=== PATIENT | female | born 1940 | race African-American/Black ===

== ENCOUNTER 2022-03-16 05:57 | Inpatient (IN) ==
[2022-03-10 12:12] LABS: Basophils # 0.1 10*3/uL (0.0-0.2); Basophils % 1.2 % (0.0-0.8); Eosinophils # 0.2 10*3/uL (0.0-0.87); Hematocrit 40.5 VOL% (35.7-47.0); Hemoglobin 12.2 GM/DL (12.0-16.0); Immature Granulocytes % 0.3 %; Immature Granulocytes Absolute 0.02 #; Lymphocytes # 1.8 10*3/uL (1.4-4.0); Lymphocytes % 24.4 % (21.3-54.2); Mean Corpuscular HGB Conc 30.1 GM/DL (32-36); Mean Platelet Volume 10.8 FL (9.6-12.0); Monocytes # 0.7 10*3/uL (0.11-0.8); Monocytes % 8.8 % (1.7-12.7); Neutrophils % 63.3 % (38.7-73.9); Platelet Count 238 T/CUMM (130-400); Red Cell Distribution Width 14.5 % (9.3-17.3); White Blood Count 7.4 T/CUMM (4-12)
[2022-03-10 12:25] LABS: Albumin 3.4 G/DL (3.4-5.0); Bilirubin,Total 0.6 MG/DL (0.20-1.00); Calcium 9.2 MG/DL (8.5-10.1); Potassium 4.6 MMOL/L (3.5-5.1); Total Protein 7.6 G/DL (6.4-8.2)
[2022-03-16] MEDS ORDERED: cefTRIAXone 1,000 MG in SODIUM CHLORIDE 0.9% 100 ML IV ONE (06:00)
[2022-03-16] MEDS ORDERED: LIDOCAINE 2% 5 ML VIAL ONE (06:34)
[2022-03-16] MEDS ORDERED: ROCURONIUM 50 MG/5 ML VIAL IV ONE (06:34)
[2022-03-16] MEDS ORDERED: ONDANSETRON 4 MG/2 ML VIAL ONE (06:34)
[2022-03-16] MEDS ORDERED: ACETAMINOPHEN 500 MG TABLET PO ONE (06:34)
[2022-03-16] MEDS ORDERED: MIDAZOLAM 2 MG/2 ML VIAL ONE (06:34)
[2022-03-16] MEDS ORDERED: DIAZEPAM 5 MG TABLET PO ONE (06:34)
[2022-03-16] MEDS ORDERED: FAMOTIDINE 20 MG TABLET PO ONE (06:34)
[2022-03-16] MEDS ORDERED: fentaNYL 100 MCG/2 ML VIAL ONE (06:34)
[2022-03-16] MEDS ORDERED: propofoL 200 MG/20 ML VIAL IV ONE (06:34)
[2022-03-16] MEDS ORDERED: GABAPENTIN 400 MG CAPSULE PO ONE (06:34)
[2022-03-16] MEDS ORDERED: ROPIVACAINE 0.5% 30 ML VIAL ONE ×2 (06:38→06:40)
[2022-03-16] MEDS ORDERED: DEXAMETHASONE 4 MG/1 ML VIAL ONE (06:38)
[2022-03-16] MEDS ORDERED: LIDOCAINE 1% 5 ML VIAL ONE (06:38)
[2022-03-16] MEDS ORDERED: LACTATED RINGERS 1,000 ML IV SCH (07:00)
[2022-03-16] MEDS ORDERED: PHENYLEPHRINE 1 MG/10 ML SYRINGE IV ONE (07:41)
[2022-03-16] MEDS ORDERED: PHENYLEPHRINE 10 MG/1 ML VIAL IV ONE (08:00)
[2022-03-16] MEDS ORDERED: SODIUM CHLORIDE 0.9% 250 ML IV ONE (08:06)
[2022-03-16] MEDS ORDERED: GLYCOPYRROLATE 0.4 MG/2 ML VIAL ONE ×2 (08:07→09:25)
[2022-03-16 08:29] LABS: Mucus,Urine Occasional /LPF (Occasional); RBC,Urine 2 /HPF (0-4); Squamous Epithelial Cell,Urine Occasional /HPF (0-10)
[2022-03-16 08:30] LABS: Bilirubin,Urine Negative (Negative); Blood, Urine Trace mg/dL (Negative); Glucose,Urine (UA) >1000 mg/dL (Negative); Ketones,Urine 15 mg/dL (Negative); Nitrite,Urine Negative (Negative); Protein,Urine Negative (Negative); Urine Appearance Clear (Clear); Urine Color Yellow (Yellow); Urine Urobilinogen 0.2 eU/dL (<2.0); Urine pH 5.5 (4.5-8.0)
[2022-03-16] MEDS ORDERED: NEOSTIGMINE 10 MG/10 ML VIAL ONE (09:25)
[2022-03-16] MEDS ORDERED: LACTATED RINGERS 1,000 ML IV ONE (09:31)
[2022-03-16] MEDS ORDERED: SEVOFLURANE 1 UNIT/15 MINUTE INH ONE (09:49)
[2022-03-16] MEDS ORDERED: PROMETHAZINE 25 MG/1 ML VIAL IM PRN (09:58)
[2022-03-16] MEDS ORDERED: SIMETHICONE CHEW 125 MG TABLET PO PRN (09:58)
[2022-03-16] MEDS ORDERED: diphenhydrAMINE 50 MG/1 ML VIAL IV PRN (09:58)
[2022-03-16] MEDS ORDERED: HYDROmorphone 1 MG/1 ML SYRINGE IV PRN ×2 (09:58→10:23)
[2022-03-16] MEDS ORDERED: ONDANSETRON 4 MG/2 ML VIAL IV PRN ×2 (09:58→10:23)
[2022-03-16] MEDS ORDERED: busPIRone 5 MG TABLET PO PRN (10:01)
[2022-03-16] MEDS ORDERED: GLUCAGON 1 MG VIAL IM PRN (10:02)
[2022-03-16] MEDS ORDERED: DEXTROSE 10% 250 ML BAG IV PRN (10:02)
[2022-03-16 10:38] LABS: Basophils % 0.6 % (0.0-0.8); Eosinophils # 0.1 10*3/uL (0.0-0.87); Eosinophils % 1.2 % (0.00-10.9); Hematocrit 34.1 VOL% (35.7-47.0); Hemoglobin 10.4 GM/DL (12.0-16.0); Immature Granulocytes % 0.1 %; Immature Granulocytes Absolute 0.01 #; Lymphocytes # 1.4 10*3/uL (1.4-4.0); Lymphocytes % 20.8 % (21.3-54.2); Mean Corpuscular HGB Conc 30.5 GM/DL (32-36); Mean Corpuscular Volume 93.4 FL (87-102); Mean Platelet Volume 10.3 FL (9.6-12.0); Monocytes # 0.6 10*3/uL (0.11-0.8); Monocytes % 8.5 % (1.7-12.7); Neutrophils % 68.8 % (38.7-73.9); Platelet Count 185 T/CUMM (130-400); Red Blood Count 3.65 MC/CUMM (3.8-5.5); Red Cell Distribution Width 14.5 % (9.3-17.3); White Blood Count 6.7 T/CUMM (4-12)
[2022-03-16 10:53] LABS: Calcium 8.7 MG/DL (8.5-10.1); Osmolality,Calculated 287.1 MOS/KG (273-304); Potassium 4.3 MMOL/L (3.5-5.1)
[2022-03-16] MEDS: ACETAMINOPHEN 325 MG TABLET PO SCH ×3 (13:37→21:25)
[2022-03-16] MEDS: SODIUM CHLORIDE 0.9% 1,000 ML IV SCH ×2 (13:37→21:17)
[2022-03-16] MEDS: INSULIN REGULAR 100 UNIT/ML SUBCUT SCH ×3 (13:38→21:19)
[2022-03-16] MEDS: carvediloL 25 MG TABLET PO SCH (17:18)
[2022-03-16] MEDS: LOSARTAN 50 MG TABLET PO SCH (21:19)
[2022-03-16] MEDS: DOCUSATE SODIUM 100 MG CAPSULE PO SCH (21:19)
[2022-03-16] MEDS: ALVIMOPAN 12 MG CAPSULE PO SCH (21:19)
[2022-03-16] MEDS: SUCRALFATE 1 GM TABLET PO SCH (21:19)
[2022-03-16] MEDS: amLODIPine 5 MG TABLET PO SCH (21:20)
[2022-03-16] MEDS: GABAPENTIN 100 MG CAPSULE PO SCH (21:20)
[2022-03-16] MEDS: ATORVASTATIN 10 MG TABLET PO SCH (21:20)
[2022-03-17 04:46] LABS: Basophils % 0.5 % (0.0-0.8); Eosinophils # 0.1 10*3/uL (0.0-0.87); Eosinophils % 0.6 % (0.00-10.9); Hematocrit 32.3 VOL% (35.7-47.0); Hemoglobin 9.6 GM/DL (12.0-16.0); Immature Granulocytes % 0.4 %; Immature Granulocytes Absolute 0.03 #; Lymphocytes # 1.3 10*3/uL (1.4-4.0); Lymphocytes % 16.4 % (21.3-54.2); Mean Corpuscular HGB Conc 29.7 GM/DL (32-36); Mean Corpuscular Volume 95.3 FL (87-102); Mean Platelet Volume 10.8 FL (9.6-12.0); Monocytes # 0.8 10*3/uL (0.11-0.8); Monocytes % 10.2 % (1.7-12.7); Neutrophils % 71.9 % (38.7-73.9); Platelet Count 167 T/CUMM (130-400); Red Blood Count 3.39 MC/CUMM (3.8-5.5); Red Cell Distribution Width 14.5 % (9.3-17.3); White Blood Count 7.9 T/CUMM (4-12)
[2022-03-17] MEDS: ACETAMINOPHEN 325 MG TABLET PO SCH ×4 (04:50→21:13)
[2022-03-17 05:04] LABS: Calcium 8.5 MG/DL (8.5-10.1); Osmolality,Calculated 283.1 MOS/KG (273-304); Potassium 4.3 MMOL/L (3.5-5.1)
[2022-03-17 05:05] LABS: Phosphorous 4.2 MG/DL (2.5-4.9); Uric Acid 4.4 MG/DL (2.6-6.0)
[2022-03-17] MEDS: SODIUM CHLORIDE 0.9% 1,000 ML IV SCH (05:15)
[2022-03-17] MEDS: LEVOTHYROXINE 50 MCG TABLET PO SCH (06:10)
[2022-03-17] MEDS ORDERED: MAGNESIUM SULF RIDER 4 GM/100 ML PREMIX IV PRN (07:10)
[2022-03-17] MEDS ORDERED: MAGNESIUM SULF RIDER 2 GM/50 ML PREMIX IV PRN (07:10)
[2022-03-17] MEDS: SUCRALFATE 1 GM TABLET PO SCH ×2 (09:16→20:57)
[2022-03-17] MEDS: ALVIMOPAN 12 MG CAPSULE PO SCH ×2 (09:16→20:57)
[2022-03-17] MEDS: LOSARTAN 50 MG TABLET PO SCH ×2 (09:16→20:57)
[2022-03-17] MEDS: GABAPENTIN 100 MG CAPSULE PO SCH ×2 (09:16→21:00)
[2022-03-17] MEDS: carvediloL 25 MG TABLET PO SCH ×2 (09:16→16:30)
[2022-03-17] MEDS: DOCUSATE SODIUM 100 MG CAPSULE PO SCH ×2 (09:16→20:59)
[2022-03-17] MEDS: PANTOPRAZOLE 40 MG TABLET PO SCH (09:20)
[2022-03-17] MEDS: cefTRIAXone 1,000 MG in SODIUM CHLORIDE 0.9% 100 ML IV SCH (09:21)
[2022-03-17] MEDS: INSULIN REGULAR 100 UNIT/ML SUBCUT SCH ×4 (09:41→21:07)
[2022-03-17] MEDS: oxyCODONE/ACETAMINOPHEN 5-325 MG TABLET PO PRN ×2 (11:33→18:24)
[2022-03-17] MEDS: ATORVASTATIN 10 MG TABLET PO SCH (20:57)
[2022-03-17] MEDS: amLODIPine 5 MG TABLET PO SCH (20:59)
[2022-03-18] MEDS: oxyCODONE/ACETAMINOPHEN 5-325 MG TABLET PO PRN ×2 (01:45→21:58)
[2022-03-18 03:32] LABS: Arterial Base Excess iSTAT -4 MMOL/L (-2.5-2.5); Arterial Bicarbonate iSTAT 21.3 MMOL/L (20-26); Arterial O2 Saturation iSTAT 92 % (95-100); Arterial PCO2 iSTAT 41 MM HG (35-48); Arterial PO2 iSTAT 68 MM HG (80-95); Arterial Total CO2 iSTAT 22 MMO/L (23-27); Arterial pH iSTAT 7.328 (7.35-7.45)
[2022-03-18] MEDS: ACETAMINOPHEN 325 MG TABLET PO SCH ×4 (03:36→21:59)
[2022-03-18 05:18] LABS: Basophils # 0.1 10*3/uL (0.0-0.2); Basophils % 0.6 % (0.0-0.8); Eosinophils # 0.1 10*3/uL (0.0-0.87); Eosinophils % 1.2 % (0.00-10.9); Hematocrit 36.2 VOL% (35.7-47.0); Immature Granulocytes % 0.2 %; Immature Granulocytes Absolute 0.02 #; Lymphocytes # 1.4 10*3/uL (1.4-4.0); Lymphocytes % 16.8 % (21.3-54.2); Mean Corpuscular HGB Conc 30.4 GM/DL (32-36); Mean Corpuscular Volume 94.3 FL (87-102); Monocytes % 11.7 % (1.7-12.7); Neutrophils % 69.5 % (38.7-73.9); Platelet Count 195 T/CUMM (130-400); Red Blood Count 3.84 MC/CUMM (3.8-5.5); Red Cell Distribution Width 14.5 % (9.3-17.3); White Blood Count 8.4 T/CUMM (4-12)
[2022-03-18 05:35] LABS: Calcium 8.9 MG/DL (8.5-10.1); Osmolality,Calculated 275.8 MOS/KG (273-304); Potassium 4.2 MMOL/L (3.5-5.1)
[2022-03-18] MEDS: LEVOTHYROXINE 50 MCG TABLET PO SCH (05:41)
[2022-03-18] MEDS: INSULIN REGULAR 100 UNIT/ML SUBCUT SCH ×4 (07:59→22:03)
[2022-03-18] MEDS: ALVIMOPAN 12 MG CAPSULE PO SCH ×2 (08:47→22:01)
[2022-03-18] MEDS: LOSARTAN 50 MG TABLET PO SCH ×2 (08:48→22:00)
[2022-03-18] MEDS: GABAPENTIN 100 MG CAPSULE PO SCH ×2 (08:49→22:02)
[2022-03-18] MEDS: PANTOPRAZOLE 40 MG TABLET PO SCH (08:49)
[2022-03-18] MEDS: DOCUSATE SODIUM 100 MG CAPSULE PO SCH ×2 (08:49→22:02)
[2022-03-18] MEDS: carvediloL 25 MG TABLET PO SCH ×2 (08:50→16:15)
[2022-03-18] MEDS: SUCRALFATE 1 GM TABLET PO SCH ×2 (08:50→22:01)
[2022-03-18] MEDS: cefTRIAXone 1,000 MG in SODIUM CHLORIDE 0.9% 100 ML IV SCH (08:52)
[2022-03-18] MEDS ORDERED: TAMSULOSIN 0.4 MG CAPSULE PO SCH (21:00)
[2022-03-18] MEDS: ATORVASTATIN 10 MG TABLET PO SCH (22:00)
[2022-03-18] MEDS: amLODIPine 5 MG TABLET PO SCH (22:00)
[2022-03-19 04:56] LABS: Basophils # 0.1 10*3/uL (0.0-0.2); Basophils % 0.7 % (0.0-0.8); Eosinophils # 0.2 10*3/uL (0.0-0.87); Eosinophils % 2.4 % (0.00-10.9); Hemoglobin 10.3 GM/DL (12.0-16.0); Immature Granulocytes % 0.4 %; Immature Granulocytes Absolute 0.03 #; Lymphocytes # 1.6 10*3/uL (1.4-4.0); Mean Corpuscular HGB Conc 30.3 GM/DL (32-36); Mean Corpuscular Volume 93.9 FL (87-102); Mean Platelet Volume 10.5 FL (9.6-12.0); Monocytes # 0.8 10*3/uL (0.11-0.8); Monocytes % 11.9 % (1.7-12.7); Neutrophils % 62.6 % (38.7-73.9); Platelet Count 176 T/CUMM (130-400); Red Blood Count 3.62 MC/CUMM (3.8-5.5); Red Cell Distribution Width 14.5 % (9.3-17.3); White Blood Count 7.1 T/CUMM (4-12)
[2022-03-19] MEDS: ACETAMINOPHEN 325 MG TABLET PO SCH ×2 (04:56→10:29)
[2022-03-19 05:13] LABS: Calcium 8.8 MG/DL (8.5-10.1); Osmolality,Calculated 286.8 MOS/KG (273-304); Potassium 3.7 MMOL/L (3.5-5.1)
[2022-03-19] MEDS: LEVOTHYROXINE 50 MCG TABLET PO SCH (05:30)
[2022-03-19 07:37] VITALS: BP 143/68
[2022-03-19] MEDS: PANTOPRAZOLE 40 MG TABLET PO SCH (08:39)
[2022-03-19] MEDS: SUCRALFATE 1 GM TABLET PO SCH (08:40)
[2022-03-19] MEDS: LOSARTAN 50 MG TABLET PO SCH (08:40)
[2022-03-19] MEDS: GABAPENTIN 100 MG CAPSULE PO SCH (08:40)
[2022-03-19] MEDS: ALVIMOPAN 12 MG CAPSULE PO SCH (08:40)
[2022-03-19] MEDS: DOCUSATE SODIUM 100 MG CAPSULE PO SCH (08:41)
[2022-03-19] MEDS: carvediloL 25 MG TABLET PO SCH (08:41)
[2022-03-19] MEDS: cefTRIAXone 1,000 MG in SODIUM CHLORIDE 0.9% 100 ML IV SCH (08:42)
[2022-03-19] MEDS: INSULIN REGULAR 100 UNIT/ML SUBCUT SCH (08:43)
[2022-03-19] MEDS ORDERED: BISACODYL 10 MG SUPP RECTAL ONE (09:00)
== END 2022-03-19 10:56 | DRG 658 ==
LOC: N.OR 05:57 → N.SDSINP 05:59 → N.5E 13:04
PROVIDERS: ADMIT Surgery; ATTEND Surgery